=== PATIENT | male | born 1960 ===

== ENCOUNTER 2021-06-18 14:29 | Outpatient (CLI) | payer BC | END 2021-06-18 14:30 | disposition home or self-care (01) | LOC: LABHHL 14:29 | PROVIDERS: ATTEND Otolaryngology Otology & Neurotology | DX: J34.2 Deviated nasal septum (principal); J34.3 Hypertrophy of nasal turbinates; J32.2 Chronic ethmoidal sinusitis | CPT/HCPCS: 88304; 88305; 88311 ==